=== PATIENT | male | born 1965 | race Caucasian/White ===

== ENCOUNTER 2022-03-20 12:35 | Emergency (ER) | payer OTHER ==
[~2022-03-20] VITALS: Ht 175.3 cm; Wt 84.1 kg
[2022-03-20 12:39] VITALS: TEMP 97.5
[2022-03-20 13:04] LABS: BASO # 0.1 K/mm3 (0.0-0.2); BASO % 1.2 % (0.0-2.0); EOS # 0.3 K/mm3 (0.0-0.7); EOS % 3.7 % (0.0-4.0); GRAN # 4.1 K/mm3 (1.4-6.5); GRAN % 51.8 % (42.2-75.2); HEMATOCRIT 44.9 % (42.0-52.0); HEMOGLOBIN 15.8 g/dl (13.5-18.0); LYMPH # 2.6 K/mm3 (1.2-3.4); LYMPH % 32.4 % (20.0-51.0); MEAN CELL VOLUME 90 fl (80.0-100.0); MEAN CORPUSCULAR HEMOGLOBIN 32 pg (27-31); MEAN CORPUSCULAR HGB CONC 35 g/dl (33.0-37.0); MEAN PLATELET VOLUME 9.2 fl (7.4-10.4); MONO # 0.9 K/mm3 (0.1-0.6); MONO % 10.7 % (1.7-9.3); PLATELET COUNT 325 K/mm3 (130-400); RED BLOOD COUNT 4.97 M/mm3 (4.20-5.60); REDCELL DISTRIBUTION WIDTH-CV 12.5 % (11.5-14.5)
[2022-03-20 13:19] LABS: ALBUMIN 4.6 gm/dL (3.5-5.0); BILIRUBIN,TOTAL 0.9 mg/dL (0.2-1.2); CALCIUM 10.2 mg/dL (8.4-10.2); POTASSIUM 4.3 mmol/L (3.5-4.5); TOTAL PROTEIN 8.3 gm/dL (6.2-8.1)
[2022-03-20 13:25] LABS: TROPONIN-I 0.017 ng/mL (0.00-0.033)
[2022-03-20 13:40] VITALS: BP 120/84; PULSE 90
== END 2022-03-20 13:51 | disposition home or self-care (01) ==
LOC: COL.ER 12:35
PROVIDERS: Family Medicine
DX: I47.1 Supraventricular tachycardia (principal); Z28.310 Unvaccinated for COVID-19
CPT/HCPCS: J7030

== ENCOUNTER 2024-01-17 11:30 | Emergency (ER) | payer OTHER ==
[~2024-01-17] VITALS: Ht 175.3 cm; Wt 88.6 kg
[2024-01-17 11:49] VITALS: TEMP 98.1
[2024-01-17 13:02] LABS: BASO # 0.1 K/mm3 (0.0-0.2); EOS # 0.3 K/mm3 (0.0-0.7); EOS % 3.4 % (0.0-4.0); GRAN # 4.7 K/mm3 (1.4-6.5); GRAN % 57.5 % (42.2-75.2); HEMATOCRIT 44.6 % (42.0-52.0); HEMOGLOBIN 14.8 g/dl (13.5-18.0); LYMPH # 2.3 K/mm3 (1.2-3.4); LYMPH % 27.8 % (20.0-51.0); MEAN CELL VOLUME 92 fl (80.0-100.0); MEAN CORPUSCULAR HEMOGLOBIN 31 pg (27-31); MEAN CORPUSCULAR HGB CONC 33 g/dl (33.0-37.0); MEAN PLATELET VOLUME 9.1 fl (7.4-10.4); MONO # 0.8 K/mm3 (0.1-0.6); MONO % 9.9 % (1.7-9.3); PLATELET COUNT 388 K/mm3 (130-400); RED BLOOD COUNT 4.83 M/mm3 (4.20-5.60); REDCELL DISTRIBUTION WIDTH-CV 12.7 % (11.5-14.5)
[2024-01-17 13:27] LABS: ALBUMIN 4.2 g/dL (3.5-5.0); BILIRUBIN,TOTAL 0.5 mg/dL (0.2-1.2); C-REACTIVE PROTEIN 0.64 mg/dL (0.00-0.50); CALCIUM 10.6 mg/dL (8.4-10.2); CREATININE, serum 1.27 mg/dL (0.72-1.25); POTASSIUM 4.6 mEq/L (3.5-4.5); TOTAL PROTEIN 8.2 g/dl (6.2-8.1)
[2024-01-17] MEDS ORDERED: AMOXICILLIN 8751 TAB PO (13:52)
[2024-01-17 14:03] VITALS: BP 130/74; PULSE 69
== END 2024-01-17 14:03 | disposition home or self-care (01) ==
LOC: COL.ER 11:30
PROVIDERS: Physician Assistant
DX: L08.9 Local infection of the skin and subcutaneous tissue, unspecified (principal); Z88.0 Allergy status to penicillin